=== PATIENT | female | born 1955 | race African-American/Black ===

== ENCOUNTER 2020-09-20 17:41 | Inpatient (IN) | payer MEDICARE, MEDICAID ==
[~2020-09-20] VITALS: Ht 167.6 cm; Wt 45.8 kg
[~2020-09-20 17:41] MED LIST: GLIP10TA10 PO; METF-414 PO; PIOG45TA5 PO; QUET200T PO
[2020-09-20] MEDS ORDERED: IPRATROPIUM BROMIDE (0.02%) 0.5MG/2.5ML NEB HHN STA (19:41)
[2020-09-20] MEDS ORDERED: AZITHROMYCIN 500 MG TABLET PO STA (19:41)
[2020-09-20] MEDS ORDERED: METHYLPREDNISOLONE SOD SUCC 125 MG/2 ML VIAL IV STA (19:41)
[2020-09-20] MEDS ORDERED: ALBUTEROL (0.083%) 2.5MG/3ML NEB HHN STA (19:41)
[2020-09-20] MEDS ORDERED: ASPIRIN 81MG TABLET PO ONE (20:00)
[2020-09-20 20:06] LABS: BASOPHILS % 1.7 % (0.0-2.0); EOSINOPHILS % 0.2 % (0.0-5.0); HEMATOCRIT. 40.1 % (36.0-48.0); HEMOGLOBIN. 13.5 g/dL (12.0-16.0); LYMPHOCYTES % 22.7 % (20.0-50.0); MEAN CORPUSCULAR HEMOGLOBIN 29.8 pg (28.0-32.0); MEAN CORPUSCULAR VOLUME 88.4 fL (81.0-99.0); MONOCYTES % 6.6 % (2.0-8.0); NEUTROPHILS % 68.8 % (40.0-76.0); RED BLOOD CELL COUNT 4.54 mill/uL (4.2-5.4); RED CELL DISTRIBUTION WIDTH 22.2 % (11.6-14.6)
[2020-09-20 20:11] LABS: CHLORIDE 101 mEq/L (98-107)
[2020-09-20 20:21] LABS: PLATELET 68 x1000/uL (130-400); PLATELET ESTIMATE DECREASED
[2020-09-20] MEDS ORDERED: FUROSEMIDE 20MG/2ML VIAL IVP ONE (21:15)
[2020-09-21] VITALS: BP 168/76
[2020-09-21 04:00] VITALS: BP 144/72
[2020-09-21 04:30] VITALS: BP 136/58
[2020-09-21] MEDS ORDERED: DEXTROSE 50% WATER 50ML SYRINGE IV PRN (05:15)
[2020-09-21] MEDS ORDERED: ACETAMINOPHEN 325MG TABLET PO PRN (05:15)
[2020-09-21] MEDS: BLOOD SUGAR DIAGNOSTIC STRIP TEST SCH ×4 (06:19→20:52)
[2020-09-21] MEDS: INSULIN LISPRO 100 UNITS/ML SUBCUT SCH ×4 (07:40→20:52)
[2020-09-21 08:00] VITALS: BP 133/68
[2020-09-21] MEDS ORDERED: ENOXAPARIN 40MG/0.4ML SYR SUBCUT SCH (09:00)
[2020-09-21] MEDS: LISINOPRIL 20MG TABLET PO SCH (09:26)
[2020-09-21] MEDS: METFORMIN HCL 500MG TABLET PO SCH ×2 (09:26→17:07)
[2020-09-21] MEDS: AMLODIPINE 10MG TABLET PO SCH (09:27)
[2020-09-21 10:18] LABS: HEMATOCRIT. 39.7 % (36.0-48.0); HEMOGLOBIN. 13.7 g/dL (12.0-16.0); MEAN CORPUSCULAR HEMOGLOBIN 30.2 pg (28.0-32.0); MEAN CORPUSCULAR VOLUME 87.5 fL (81.0-99.0); RED BLOOD CELL COUNT 4.53 mill/uL (4.2-5.4)
[2020-09-21 10:27] LABS: CHLORIDE 101 mEq/L (98-107)
[2020-09-21] MEDS ORDERED: ONDANSETRON HCL 4MG/2ML INJ IV PRN (11:15)
[2020-09-21] MEDS: HYDROCODONE/ACETAMINOPHEN 10/325MG TABLET PO PRN ×3 (11:39→23:21)
[2020-09-21 11:45] LABS: PLATELET 98 x1000/uL (130-400)
[2020-09-21 11:49] LABS: PLATELET ESTIMATE DECREASED
[2020-09-21 12:00] VITALS: BP 171/87
[2020-09-21] MEDS ORDERED: MORPHINE SULFATE 4 MG/ML CPJ (NOT FOR IM USE) IV NR (12:00)
[2020-09-21] MEDS ORDERED: IPRATROPIUM/ALBUTEROL 0.5-3(2.5)MG/3ML NEB HHN SCH (12:00)
[2020-09-21 16:00] VITALS: BP 131/64
[2020-09-21] MEDS ORDERED: IPRATROPIUM/ALBUTEROL 0.5-3(2.5)MG/3ML NEB HHN PRN (16:45)
[2020-09-21] MEDS: ENOXAPARIN 30MG/0.3ML SYR SUBCUT SCH (16:58)
[2020-09-21] MEDS: CLONIDINE 0.1MG TABLET PO PRN (20:11)
[2020-09-21] MEDS: IPRATROPIUM/ALBUTEROL 0.5-3(2.5)MG/3ML NEB HHN SCH ×2 (20:20→23:51)
[2020-09-22] MEDS: HYDROCODONE/ACETAMINOPHEN 10/325MG TABLET PO PRN ×3 (03:47→12:32)
[2020-09-22 04:00] VITALS: BP 163/76
[2020-09-22] MEDS: BLOOD SUGAR DIAGNOSTIC STRIP TEST SCH ×2 (07:10→12:36)
[2020-09-22 08:00] VITALS: BP 162/84
[2020-09-22] MEDS: LISINOPRIL 20MG TABLET PO SCH (08:13)
[2020-09-22] MEDS: AMLODIPINE 10MG TABLET PO SCH (08:13)
[2020-09-22] MEDS: METFORMIN HCL 500MG TABLET PO SCH (08:13)
[2020-09-22] MEDS: INSULIN LISPRO 100 UNITS/ML SUBCUT SCH ×2 (08:18→13:35)
[2020-09-22] MEDS: IPRATROPIUM/ALBUTEROL 0.5-3(2.5)MG/3ML NEB HHN SCH (09:10)
[2020-09-22 12:00] VITALS: BP 159/68
[2020-09-22] MEDS ORDERED: ALBU18HF2 IH (12:03)
[2020-09-22] MEDS ORDERED: FLUT1DIS3 INH (12:03)
[2020-09-22] MEDS ORDERED: AMLO10TA80 PO (12:03)
[2020-09-22] MEDS ORDERED: LISI20TA31 PO (12:03)
[2020-09-22] MEDS: ENOXAPARIN 30MG/0.3ML SYR SUBCUT SCH (13:33)
[2020-09-22 14:56] VITALS: BP 140/82
[2020-09-22] MEDS: CLONIDINE 0.1MG TABLET PO PRN (15:02)
[2020-09-22 15:20] VITALS: BP 140/82
== END 2020-09-22 15:35 | disposition home or self-care (01) | DRG 133 ==
LOC: ER 17:41 → 8WST 21:58 → ENRESERV 09-21 03:09
PROVIDERS: ADMIT Internal Medicine; ATTEND Internal Medicine
DX: J96.21 Acute and chronic respiratory failure with hypoxia (principal); R65.11 Systemic inflammatory response syndrome (SIRS) of non-infectious origin with acute organ dysfunction; D69.6 Thrombocytopenia, unspecified; J44.1 Chronic obstructive pulmonary disease with (acute) exacerbation; E44.1 Mild protein-calorie malnutrition; E87.1 Hypo-osmolality and hyponatremia; Z99.81 Dependence on supplemental oxygen; D72.819 Decreased white blood cell count, unspecified; E11.9 Type 2 diabetes mellitus without complications; F17.210 Nicotine dependence, cigarettes, uncomplicated; I10 Essential (primary) hypertension; F11.10 Opioid abuse, uncomplicated; Z68.1 Body mass index [BMI] 19.9 or less, adult; Z71.51 Drug abuse counseling and surveillance of drug abuser; Z71.6 Tobacco abuse counseling
CPT/HCPCS: 36415; 71045; 80053; 82962; 83036; 83880; 84484; 85025; 93005; 93970; 94640; 99285; J1650; J1815; J1940; J2270; J2405; J2930